=== PATIENT | female | born 1965 | race Caucasian/White ===

== ENCOUNTER 2020-04-11 14:38 | Emergency (ER) | payer OTHER ==
[2020-04-11] MEDS ORDERED: HYDROCODONE/ACETAMINOPHEN 5/325 MG TAB ONE (15:29)
== END 2020-04-11 18:48 | disposition home or self-care (01) ==
LOC: EDH 14:38
DX: S20.212A Contusion of left front wall of thorax, initial encounter (principal); R07.89 Other chest pain; W18.39XA Other fall on same level, initial encounter; Y93.01 Activity, walking, marching and hiking; Y92.89 Other specified places as the place of occurrence of the external cause; Y99.8 Other external cause status
CPT/HCPCS: 71101; 93005

== ENCOUNTER → 2025-05-28 | Emergency (ER) | payer OTHER ==
[~2025-05-28] VITALS: Ht 170.2 cm; Wt 81.6 kg
[~2025-05-28] MED LIST: OSEL75 PO
[2025-05-28 16:16] LABS: INFLUENZA TYPE A Negative For Type A (NEGATIVE)
[2025-05-28 16:17] LABS: IMMATURE GRANULOCYTE ABSOLUTE 0.02 K/uL (0-1); NUCLEATED RED BLOOD CELLS 0.0 % (0.0-0.19); PLATELET COUNT (AUTO) 216 K/uL (130-400); RED BLOOD CELL COUNT(AUTO) 4.54 MIL/uL (4.00-5.50); RED CELL DISTRIBUTION WIDTH 12.8 % (11.0-15.5); WHITE BLOOD COUNT (AUTO) 8.7 K/uL (4.8-10.8)
[2025-05-28 16:17] LABS: COVID19 (SARS ANTIGEN RAPID) PRESUMPTIVE NEGATIVE (NEGATIVE)
[2025-05-28 16:21] LABS: ABG BASE EXCESS 2.6 mmol/L (-2.0-3.0); ABG HCO3 27.3 mmol/L (21.0-28.0); ABG OXYGEN SATURATION 91.2 % (94.0-98.0); ABG PCO2 42 mmHg (32-45); ABG PH 7.428 (7.350-7.450); DEVICE COMMENT RR SAUL; PO2, ARTERIAL BG 58.9 mmHg (83.0-108.0); TEMPERATURE, CELSIUS BG 37.0 CELSIUS (35.5-37.0); VENT MODE, BG ROOM AIR (ROOM AIR)
--- NOTE | 2025-05-28 16:23 | ERN ---
ED Note History of Present Illness Stated Complaint: DEHYDRATION Chief Complaint: Dehydration Time Seen by MD: 15:35 Time Seen by Midlevel: 15:36 Dictation: 59-year-old female presents to the emergency department per EMS due to report of having been told by EMS that she was dehydrated. At this time, the patient reports having some fever and chills associated with this. Patient does report having some generalized weakness and generalized body aches. There is no confirmed fever at this time associated with this fall upon arrival. She denies having any nausea, vomiting or diarrhea associated with this. Upon initial evaluation, the patient presents mildly ill looking. As per EMS, the report stated that she did have a temperature of 101 F on site. Allergies: Coded Allergies: No Known Drug Allergies (Unverified Allergy, Unknown, 05/28/25) Emergency Care UTILIZATION REVIEW SPECIALIST: IV Past Medical History Past Medical History: Diabetes-Type II, Hypertension, Other Additional Past Medical Hx: TRAUMATIC BRAIN INJURY Surgical History: Other Surgical History Other: BRAIN SX PSYCH History: no pertinent psych hx RN Note Reviewed/Agreed w/PFSH: Yes Review of System Dictation Neuro: Generalized weakness Initial Vital Sign VS Vital Signs Date Time Temp Pulse Resp B/P (MAP) Pulse Ox O2 Delivery O2 Flow Rate FiO2 05/28/25 15:26 98.4 120 18 128/88 98 Room Air 0 05/28/25 15:44 21 Physical Exam Dictation General: awake, alert, NAD Head/Face: Normocephalic, atraumatic Eyes: PERRL, EOMI ENT: Oral mucosa dry Neck: Trachea midline, supple Cardiovascular: RRR, no edema Respiratory: Symmetrical, non-labored, scattered rhonchi. Abdomen: Soft, non-tender, non-distended, no guarding. Skin: Warm, dry, good turgor, no rash MS/Extremity: Pulses equal, no cyanosis, neurovascular intact, FROM Neuro: Awake, alert, oriented to person, place, time. Difficulty with si tuation. Psych: Normal behavior, mood, and affect normal Results (Laboratory/Radiology) Laboratory/Radiology Laboratory Tests Test 05/28/25 15:50 05/28/25 16:00 05/28/25 16:19 Influenza Type A Antigen Negative For Type A Influenza Type B Antigen Positive For Type B SARS-CoV-2 Antigen (Rapid) PRESUMPTIVE NEGATIVE White Blood Count 8.7 K/uL (4.8-10.8) Red Blood Count 4.54 MIL/uL (4.00-5.50) Hemoglobin 14.1 g/dL (12.0-16.0) Hematocrit 42.4 % (36-48) Mean Corpuscular Volume 93.4 fL (79-99) Mean Corpuscular Hemoglobin 31.1 pg (27.0-33.0) Mean Corpuscular Hemoglobin Concent 33.3 g/dL (32.0-36.0) Red Cell Distribution Width 12.8 % (11.0-15.5) Platelet Count 216 K/uL (130-400) Mean Platelet Volume 10.3 fL (7.5-10.5) Immature Granulocyte % (Auto) 0.2 % (0-1) Neutrophils (%) (Auto) 64.7 % (40.0-77.0) Lymphocytes (%) (Auto) 24.0 % (21.0-51.0) Monocytes (%) (Auto) 9.4 % (3.0-13.0) Eosinophils (%) (Auto) 1.2 % (0.0-8.0) Basophils (%) (Auto) 0.5 % (0.0-5.0) Neutrophils # (Auto) 5.6 K/uL (1.8-7.7) Lymphocytes # (Auto) 2.1 K/uL (1.0-4.8) Monocytes # (Auto) 0.8 K/uL (0.1-1.0) Eosinophils # (Auto) 0.10 K/uL (0.00-0.70) Basophils # (Auto) 0.04 K/uL (0.00-0.20) Absolute Immature Granulocyte (auto 0.02 K/uL (0-1) Nucleated Red Blood Cells 0.0 % (0.0-0.19) Sodium Level 144 mmol/L (136-145) Potassium Level 3.4 mmol/L (3.5-5.1) L Chloride Level 105 mmol/L (101-111) Carbon Dioxide Level 30 mmol/L (21-32) Blood Urea Nitrogen 10 mg/dL (7-18) Creatinine 0.7 mg/dL (0.5-1.0) Glomerular Filtration Rate Calc 98 mL/min (>90) Random Glucose 122 mg/dL (70-105) H Lactic Acid Level 1.3 mmol/L (0.8-2.5) Total Calcium 9.7 mg/dL (8.5-10.1) Magnesium Level 1.90 mg/dL (1.80-2.40) Total Bilirubin 0.7 mg/dL (0.2-1.0) Aspartate Amino Transf (AST/SGOT) 13 U/L (10-37) Alanine Aminotransferase (ALT/SGPT) 21 U/L (12-78) Alkaline Phosphatase 78 U/L (50-136) Ammonia 18 umol/L (11-32) Total Creatine Kinase 39 U/L (21-232) # Troponin I High Sensitivity 11 ng/L (4-50) Total Protein 6.8 g/dL (6.0-8.3) Albumin 3.7 g/dL (3.5-5.0) Blood Gas Specimen Type Arterial Arterial Blood pH 7.428 (7.350-7.450) Arterial Blood Partial Pressure CO2 42 mmHg (32-45) Arterial Blood Partial Pressure O2 58.9 mmHg (83.0-108.0) L Arterial Blood HCO3 27.3 mmol/L (21.0-28.0) Arterial Blood Oxygen Saturation 91.2 % (94.0-98.0) L Arterial Blood Base Excess 2.6 mmol/L (-2.0-3.0) Blood Gas Temperature 37.0 CELSIUS (35.5-37.0) Blood Gas Vent Mode ROOM AIR (ROOM AIR) FiO2 21.0 % Blood Gas Specimen Comment RR JENNIFER Labs Reviewed?: Yes X-RAY Comment: Chest x-ray one view with no infiltrates as interpreted by me. ED Course ED Course Orders Procedure Category Date Status Time Arterial Blood Gas RT 05/28/25 Transmitted 15:45 Ammonia LAB 05/28/25 Complete 15:45 Troponin I High LAB 05/28/25 Complete Sensitivity 15:45 Cbc With Differential LAB 05/28/25 Complete 15:45 Comprehensive LAB 05/28/25 Complete Metabolic Panel 15:45 Lactic Acid LAB 05/28/25 Complete 15:45 Magnesium LAB 05/28/25 Complete 15:45 Urinalysis Profile LAB 05/28/25 Logged 15:45 Blood Cult LUCA 05/28/25 In Process 15:45 Influenza Type A & B, LAB 05/28/25 Complete Rapid 15:45 Covid19 (Sars Antigen LAB 05/28/25 Complete Rapid) 15:45 Procainamide Level LAB 05/28/25 In Process 15:45 Creatine Kinase, Total LAB 05/28/25 Complete 15:45 Saline Lock Iv CPOE 05/28/25 Transmitted 15:45 Chest 1vw RAD 05/28/25 Resulted 15:45 Arterial Blood Gas LAB 05/28/25 Complete 16:19 Vital Signs Date Time Temp Pulse Resp B/P (MAP) Pulse Ox O2 Delivery O2 Flow Rate FiO2 05/28/25 19:33 98.2 89 18 132/75 98 Room Air* 0 21 05/28/25 18:02 95 18 118/84 97 Room Air* 0 05/28/25 15:44 98.2 101 18 108/76 95 Room Air* 0 05/28/25 15:26 98.4 120 18 128/88 98 Room Air 0 Medical Decision Making MDM MDM: Differential diagnosis: Pneumonia, influenza, COVID, viral illness. Rationale: Tests considered and ordered secondary to shared decision making include: Previous outside records reviewed: Old ER visits. Risk of complication and/or morbidity or mortality of patient management: None Medications-Per medication reconciliation Need for hospitalization: Patient does not meet criteria for hospitalization. Need for emergency major/minor surgery: No There are no social concerns with this patient. Prescription drug management Prescriptions will include symptomatic care Patient's prior external medical records from other ER visits were reviewed by me as indicated. Prior testing and results from previous visits were reviewed. Prior tests were taken into account with medical decision making and resource utilization, independent historian/historians were used to obtain complete medical history. I independently interpreted the test that were performed, results were reviewed by me and considered findings on radiology if ordered. Medical management and examination interpretation discussions were had by me with other qualified healthcare professionals as indicated for the patient's care. DX & DISP Disposition: Discharge Departure Impression: Primary Impression: Influenza B Condition: Stable Scripts Oseltamivir Phosphate (Tamiflu) 75 Mg Cap 1 CAP PO BID for 5 Days, #10 CAP 0 Refills Prov: BARBIE CAREY 05/28/25 Referrals: [facility] CESAR MD (PCP) Time of Disposition: 19:38 BARBIE CAREY May 28, 2025 16:23
[2025-05-28 16:30] LABS: INFLUENZA TYPE B Positive For Type B (NEGATIVE)
[2025-05-28 16:35] LABS: CREATININE 0.7 mg/dL (0.5-1.0); GLOMERULAR FILTR. RATE CALC 98.0 mL/min (>90); GLUCOSE,RANDOM 122.0 mg/dL (70-105); SODIUM SERUM 144.0 mmol/L (136-145); UREA NITROGEN, BLOOD 10.0 mg/dL (7-18)
[2025-05-28 16:44] LABS: ASPARTATE AMINOTRANSFERASE 13.0 U/L (10-37); CREATINE KINASE, TOTAL 39.0 U/L (21-232); TOTAL PROTEIN, SERUM 6.8 g/dL (6.0-8.3)
--- NOTE | 2025-05-28 17:25 | HMCIMG ---
EXAM: CR Chest, 1 View. CLINICAL HISTORY: cough COMPARISON: X-ray chest 01/01/2017 FINDINGS: LUNGS: There is no mass, infiltrate, or acute pulmonary abnormality. PLEURAL SPACES: No pleural effusion or pneumothorax. MEDIASTINUM: Cardiac size and mediastinal contours within normal limits. BONES: No acute osseous abnormality. IMPRESSION: No acute cardiopulmonary pathology is evident. No significant change /[place]
[2025-05-28 19:33] VITALS: BP 132/75; PULSE 89; RESP 18; TEMP 98.2; O2SAT 98
--- NOTE | 2025-05-28 19:55 | NUR ---
FAILED ATTEMPT X2- TRYING TO CONTACT SON VIA PHONE CALL - NO ANSWER
--- NOTE | 2025-05-28 20:22 | NUR ---
SPOKEN TO SON ALVIN, UNABLE TO PICK HER MUM UP UNTIL HE GETS OF FROM WORK AT 23.00 INFROM JULIO TOMEKA AND HOUSESUPERVISOR TINO DUKE IS HAPPY FOR HER TO GO VIA EMS LONG SHE MEETS THE CRITERIA TRANSPORT BOOKED, INFORMED PATIENT REGARDING THE PLAN
--- NOTE | 2025-05-28 23:01 | NUR ---
SON CAME TO [facility]ETH HER MUM EXPLAINED TO HER SON DC INSTRUCTION
== END ==
LOC: EDH 15:17
DX: J10.1 Influenza due to other identified influenza virus with other respiratory manifestations (principal); E86.0 Dehydration; I10 Essential (primary) hypertension; E11.9 Type 2 diabetes mellitus without complications; Z20.822 Contact with and (suspected) exposure to COVID-19
CPT/HCPCS: 36415; 36600; 71045; 80053; 80190; 82140; 82550; 82803; 83605; 83735; 84484; 85025; 87040; 87086; 87186; 87426; 87804; 99284